=== PATIENT | female | born 1985 | race Caucasian/White ===

== ENCOUNTER 2018-08-18 20:29 | Emergency (ER) | payer BC ==
[~2018-08-18] VITALS: Ht 162.6 cm; Wt 59.1 kg
[2018-08-18 20:38] VITALS: BP 112/71; TEMP 99.2
[2018-08-18] MEDS ORDERED: VYVANSE50 MG PO (20:55)
[2018-08-18 21:27] VITALS: PULSE 73
== END 2018-08-18 21:27 | disposition home or self-care (01) ==
LOC: COL.ER 20:29
DX: S67.190A Crushing injury of right index finger, initial encounter (principal); Z88.0 Allergy status to penicillin; Z90.721 Acquired absence of ovaries, unilateral; Z88.1 Allergy status to other antibiotic agents; W23.0XXA Caught, crushed, jammed, or pinched between moving objects, initial encounter